=== PATIENT | female | born 1995 | race Caucasian/White ===

== ENCOUNTER 2021-02-28 10:37 | Emergency (ER) | payer OTHER, SELFPAY ==
[2021-02-28 10:54] VITALS: BP 141/89; PULSE 107; RESP 16; TEMP 36.8; O2SAT 99
--- NOTE | 2021-02-28 11:07 | ED.NAVMDI ---
HPI - Nausea/Vomiting/Diarrhea General Chief complaint: Nausea/Vomiting/Diarrhea Stated complaint: Nausea Time Seen by Provider: 02/28/21 10:43 Source: patient Mode of arrival: ambulatory Limitations: no limitations History of Present Illness HPI Narrative: 25 year old female presents to [facility] with complaints of nausea for the past week. Patient reports that she has a long history of anxiety for most of her life and feels that her anxiety has been heightened over the past few weeks. Patient reports that she has intermittent chest tightness with her anxiety which is normal for her. Patient reports that she recently received a new job and is in the process of getting established with a psychiatrist. Patient reports that she has been on and off medications for her anxiety most of her life. Patient reports that she quit taking her anxiety medication approximately 6 months ago as her symptoms were well controlled. Patient denies suicidal or homicidal thoughts. Patient denies concern for . Last menstrual period is February 17, 2021. Patient is homosexual. Patient denies fever, body aches, chills, vomiting, diarrhea, abdominal pain, urinary symptoms. Patient is requesting medication for her nausea until she is able to get established with a local psychiatrist. MD elicited complaint: nausea Onset (ago): week(s) (1) Associated abdominal pain: No Location of pain: none Associated symptoms: other (anxiety) Related Data Allergies Allergy/AdvReac Type Severity Reaction Status Date / Time No Known Allergies Allergy Verified 02/28/21 11:00 Review of Systems Constitutional: Constitutional: Denies chills, Denies fatigue, Denies fever(s) and Denies weakness Cardiovascular: Cardiovascular: Denies rapid heart rate, Denies radiating jaw, neck or arm pain and Denies slow heart rate Respiratory: Respiratory: Denies chest congestion, Denies cough and Denies wheezing Gastrointestinal: Gastrointestinal: Denies abdominal pain, Denies constipation, Denies diarrhea, Reports nausea and Denies vomiting Integumentary/Breasts: Skin/Breast: Denies rash Neurologic: Denies vertigo, Denies dizziness and Denies syncope Psychiatric: Psychiatric: Reports anxiety, Denies depression, Denies homicidal ideation and Denies suicidal ideation [facility] Past Medical History Medical History (Updated 02/28/21 @ 11:15 by Nehal Reynoso APRN) Anxiety Social History Social History (Updated 05/13/21 @ 11:12 by BOSTON Bello Gender identity (if verbalized by the patient): Female Sexual Orientation (if Verbalized by the Patient): Lesbian, Astudillo, or Homosexual Comments At time of signature, I agree with nursing past medical, surgical, social and family history. There is no relevant family history pertinent to the presenting complaint. Exam Const: General: no acute distress and alert Nutritional Appearance: well nourished Orientation/consciousness: patient oriented x3 Resp: Effort & Inspection: normal respiratory effort, not labored and not tachypneic Auscultation: clear to auscultation bilaterally, no rales, no rhonchi and no wheezes Cardio: Rate: regular rate, not bradycardic and not tachycardic Rhythm: regular rhythm Heart sounds: no murmurs GI: Inspection: distended GI Palp: Yes Soft to palpation, No Tenderness to palpation present (GI), No Guarding due to palpation present (GI) and No Rigid due to palpation Auscultation: normal bowel sounds Skin: General skin exam: normal color, no jaundice and no pallor Rashes: no rashes Wounds: no wounds and no wounds noted Neuro: General: patient oriented x3, moves all extremities and no meningeal signs Speech: normal speech Psych: Appearance: grossly normal and well kempt Mental Status: mental status grossly normal Affect: normal affect Attitude: cooperative Thought content: Yes Normal thought content present, No Suicidality present and No Homicidality present Course Vital Signs Vital signs:
== END 2021-02-28 11:20 | disposition home or self-care (01) ==
PROVIDERS: Emergency Provider Nurse Practitioner Family
DX: R11.0 Nausea (principal); F41.9 Anxiety disorder, unspecified
CPT/HCPCS: 99203; G0463

== ENCOUNTER 2021-03-25 00:15 | Emergency (ER) | payer OTHER, SELFPAY ==
[2021-03-25] VITALS (12 sets, daily range): BP systolic 119–154; BP diastolic 70–97; PULSE 90–130; RESP 11–25; TEMP 36.4; O2SAT 97–100
--- NOTE | ~2021-03-25 | XR_ITS ---
EXAMINATION: XR chest 2V EXAM DATE: 03/25/2021 01:32 INDICATION: Dizziness. TECHNIQUE: Frontal and lateral projections of the chest obtained and reviewed. Comparison is made to prior examination from 09/22/2018. FINDINGS: The lungs are clear. There are no pleural effusions. The cardiomediastinal silhouette is within normal limits. There is no pneumothorax suspected. The bones and soft tissues are unremarkab le. IMPRESSION: No acute cardiopulmonary findings. Reviewed, dictated and finalized at location A.
--- NOTE | 2021-03-25 01:11 | ECG_ITS ---
Measurements Intervals [place] Rate: 106 P: 63 NC: 156 QRS: 62 QRSD: 77 T: 45 QT: 335 QTc: 445 Interpretive Statements SINUS TACHYCARDIA POSSIBLE LEFT ATRIAL ENLARGEMENT INCOMPLETE RIGHT BUNDLE BRANCH BLOCK ABNORMAL ECG Electronically Signed On 03-25-2021 7:19:11 CDT by Dat Lundberg D.O.
--- NOTE | 2021-03-25 01:25 | PC.NURSE ---
Pt to XY at this time
--- NOTE | 2021-03-25 01:45 | PC.NURSE ---
Unable to find good IV access site for pt. Contacted ED charge to make attempt. Urine cup at bedside.
[2021-03-25] MEDS: SODIUM CHLORIDE 0.9% IV 1,000 ML 999 ML IV CONT ×2 (02:11→03:18)
[2021-03-25] MEDS: LORazepam INJ (*CRX) 2 MG/ML VIAL 0.5 MG IV PUSH (02:12)
--- NOTE | 2021-03-25 02:15 | ED.DIZZY ---
HPI - Dizziness General Chief Complaint: Dizziness Stated Complaint: dizziness, hi bp Time Seen by Provider: 03/25/21 01:06 Source: RN notes reviewed History of Present Illness HPI Narrative: Patient presents to emergency department from home for palpitations. Patient states approximately 1 PM this evening she was driving when she began to feel like her heart was racing she states that with this it was associated with shortness of breath as well as tingling in her bilateral hands patient states that she has been intermittent feelings of her heart racing over the past week she denies any fevers or chills chest pain shortness of breath abdominal pain nausea vomiting or any other symptoms. Denies any previous work-up for palpitations Related Data Home Medications Medication Instructions Recorded Confirmed No Home Medications 03/25/21 03/25/21 Allergies Allergy/AdvReac Type Severity Reaction Status Date / Time No Known Allergies Allergy Verified 03/25/21 01:01 Review of Systems Review of Systems: Narrative: Gen.: Denies fevers or chills ENT: Denies congestion Respiratory: Denies shortness of breath or cough CV: See HPI GI: Denies abdominal pain nausea, emesis or diarrhea Musculoskeletal: Denies back pain or muscle pain Neuro: Denies numbness, tingling, weakness or focal weakness Skin: Denies rash Except as documented, all other systems reviewed and negative [facility] Past Medical History Medical History (Updated 03/25/21 @ 05:08 by Juventino Sosa DO) Patient denies significant medical history Social History Social History (Updated 03/25/21 @ 02:46 by Juventino Sosa DO) Smoking status: Never smoker Exam Narrative: Exam Narrative: APPEARANCE: No acute distress, nontoxic, resting in bed EYES: EOMI HEENT: Normocephalic, atraumatic, OMM RESPIRATORY: No respiratory distress Clear to auscultation bilaterally with no rhonchi wheezing or rales. CARDIOVASCULAR: Tachycardic and regular without murmurs rubs or gallops. ABDOMINAL: Soft, nontender, nondistended, no rebound or guarding MUSCULOSKELETAl: Moves all extremities. No clubbing, cyanosis or edema. NEURO: Awake and alert. Following commands, speech normal, no focal deficits SKIN:: Warm, dry. No rashes lesions or abrasions PSYCHIATRIC: Normal affect/mood, Course Course Emergency Course: Patient's heart rate improved in ED with Ativan and fluids Discussed with patient results of workup and diagnosis. Discussed need for follow-up with primary care, proper use of medication, and reasons to return to the emergency department. Patient understands and agrees to current treatment plan with patient need for follow-up with cardiology as outpatient Vital Signs Vital signs: Vital Signs Temperature 97.6 F 03/25/21 00:32 Pulse Rate 130 H 03/25/21 00:32 Respiratory Rate 18 03/25/21 00:32 Blood Pressure 154/76 H 03/25/21 00:32 Pulse Oximetry 100 03/25/21 00:32 Temperature 97.6 F 03/25/21 00:32 Pulse Rate 90 03/25/21 04:01 Respiratory Rate 18 03/25/21 04:01 Blood Pressure 119/70 03/25/21 04:01 Pulse Oximetry 99 03/25/21 04:01 MDM - Dizziness Lab Data Result diagrams: 03/25/21 02:19 03/25/21 02:19 Labs: Lab Results 03/25/21 03/25/21 03/25/21 Range/Units 02:19 02:19 02:19 WBC 11.5 H (4.5-10.0) K/mm3 RBC 5.14 (4.2-5.4) M/mm3 Hgb 14.3 (12.0-15.0) g/dL Hct 43.2 (37.0-47.0) % MCV 84.0 (80-100) fl MCH 27.8 (26-34) pg MCHC 33.1 (32-36) g/dl RDW 12.7 (11.5-14.5) % Plt Count 399 H (150-375) k/mm3 MPV 9.6 (7.4-10.4) fl Immature Gran % (Auto) 0.3 (0-0.5) % Neut % (Auto) 57.5 (45.5-73.1) % Lymph % (Auto) 19.7 (18.3-44.2) % Rhea % (Auto) 5.6 (2.6-8.5) % Eos % (Auto) 16.4 H (0-4.4) % Baso % (Auto) 0.5 (0.2-1.2) % Lymph # (Auto) 2.27 (0.9-3.2) K/mm3 Rhea # (Auto) 0.7 H (0.1-0.6) K/mm3 Eos # (Auto) 1.9 H (0-0.
[2021-03-25 02:32] LABS: Basophils Absolute Auto 0.1 K/mm3 (0.0-0.1); Basophils Percent Auto 0.5 % (0.2-1.2); Eosinophils Absolute Auto 1.9 K/mm3 (0-0.3); Eosinophils Percent Auto 16.4 % (0-4.4); Hematocrit 43.2 % (37.0-47.0); Hemoglobin 14.3 g/dL (12.0-15.0); Immature Granulocyte Absolute 0.03 K/mm3 (0.00-0.031); Immature Granulocyte Percent A 0.3 % (0-0.5); Lymphocytes Absolute Auto 2.27 K/mm3 (0.9-3.2); Lymphocytes Percent Auto 19.7 % (18.3-44.2); Mean Corpuscular HGB Conc 33.1 g/dl (32-36); Mean Corpuscular Hemoglobin 27.8 pg (26-34); Mean Platelet Volume 9.6 fl (7.4-10.4); Monocytes Absolute Auto 0.7 K/mm3 (0.1-0.6); Monocytes Percent Auto 5.6 % (2.6-8.5); Neutrophils Absolute Auto 6.6 K/mm3 (1.3-6.7); Neutrophils Percent Auto 57.5 % (45.5-73.1); Platelet Count Result 399 k/mm3 (150-375); Red Blood Count 5.14 M/mm3 (4.2-5.4); Red Cell Distribution Width 12.7 % (11.5-14.5); White Blood Count 11.5 K/mm3 (4.5-10.0)
[2021-03-25 02:35] LABS: Add Urine Microscopic? YES; Appearance Urine Clear (Clear); Bilirubin Urine Negative (Negative); Blood Urine 1+ (Negative); Color Urine Colorless (Yellow); Glucose Urine UA Negative (Negative); Ketones Urine 1+ mg/dL (Negative); Leukocyte Esterase Ur Negative LEU/UL (Negative); Mucus Urine Rare /lpf; Nitrate Urine Negative (Negative); Protein Urine Negative (Negative); RBC Urine 0-2 /hpf (0-2); Squamous Epithelial Cell Urine Rare /hpf (Few); Urobilinogen Urine Negative mg/dL (<2.0); WBC Urine 0-3 /hpf
[2021-03-25 02:40] LABS: Anion Gap 14 mmol/L (8-16); Blood Urea Nitrogen 12 mg/dL (7-17); Calcium 9.3 mg/dL (8.4-10.2); Carbon Dioxide 20 mmol/L (22-30); Chloride 106 mmol/L (98-107); Estimated CRCL calculation 105 ml/min; Estimated Glomerular Filt Rate > 60; Glucose 89 mg/dL (65-105); Potassium 3.5 mmol/L (3.4-5.0); Sodium 140 mmol/L (137-145)
[2021-03-25 02:42] LABS: Specific Grav Ur 1.004 (1.001-1.035)
[2021-03-25 02:53] LABS: Troponin I < 0.012 ng/mL (0.000-0.034)
[2021-03-25 02:56] LABS: Prothrombin Time 13.6 Seconds (11.1-14.7)
[2021-03-25 02:59] LABS: D Dimer 0.27 ug/mL (<0.48)
[2021-03-25 05:06] LABS: Troponin I < 0.012 ng/mL (0.000-0.034)
== END 2021-03-25 05:10 | disposition home or self-care (01) ==
PROVIDERS: Emergency Provider Emergency Medicine
DX: R00.2 Palpitations (principal); R00.0 Tachycardia, unspecified; R94.31 Abnormal electrocardiogram [ECG] [EKG]; I45.10 Unspecified right bundle-branch block
CPT/HCPCS: 36415; 71046; 80048; 81001; 81025; 84443; 84484; 85025; 85380; 85610; 85730; 93005; 96361; 96374; 99284; J2060; J7030

== ENCOUNTER → 2021-07-05 17:20 | Outpatient (CLI) | payer OTHER, SELFPAY ==
--- NOTE | ~2021-07-05 | MM_ITS ---
EXAMINATION: MM screening kody BI w karlene HISTORY: Screening mammogram TECHNIQUE: Craniocaudal and mediolateral oblique 3-D tomosynthesis images were obtained and synthetic 2-D images were generated. CAD analysis was submitted and interpreted. COMPARISON: No prior mammogram is available for comparison at this institution. BREAST PARENCHYMAL COMPOSITION: There are scattered areas of fibroglandular density. FINDINGS: There is no evidence of suspicious mass, calcification, or architectural distortion to sugg est malignancy in either breast. There has been no suspicious interval change. IMPRESSION: 1. No mammographic evidence of malignancy. 2. Recommend routine screening mammography in one year. BI-RADS Category 1: Negative Reviewed, dictated and finalized at location A.
== END ==
PROVIDERS: Visit Provider Nurse Practitioner Obstetrics & Gynecology
DX: Z12.31 Encounter for screening mammogram for malignant neoplasm of breast (principal); Z80.3 Family history of malignant neoplasm of breast
CPT/HCPCS: 77063; 77067

== ENCOUNTER 2021-09-13 10:15 | Outpatient (CLI) | payer OTHER, SELFPAY ==
[2021-09-13 10:43] LABS: Basophils Absolute Auto 0.1 K/mm3 (0.0-0.1); Basophils Percent Auto 0.8 % (0.2-1.2); Eosinophils Percent Auto 0.3 % (0-4.4); Hematocrit 46.3 % (37.0-47.0); Hemoglobin 15.2 g/dL (12.0-15.0); Immature Granulocyte Absolute 0.03 K/mm3 (0.00-0.031); Immature Granulocyte Percent A 0.3 % (0-0.5); Lymphocytes Absolute Auto 2.97 K/mm3 (0.9-3.2); Lymphocytes Percent Auto 25.6 % (18.3-44.2); Mean Corpuscular HGB Conc 32.8 g/dl (32-36); Mean Corpuscular Hemoglobin 29.3 pg (26-34); Mean Corpuscular Volume 89.4 fl (80-100); Mean Platelet Volume 9.5 fl (7.4-10.4); Monocytes Absolute Auto 0.9 K/mm3 (0.1-0.6); Monocytes Percent Auto 7.3 % (2.6-8.5); Neutrophils Absolute Auto 7.6 K/mm3 (1.3-6.7); Neutrophils Percent Auto 65.7 % (45.5-73.1); Platelet Count Result 382 k/mm3 (150-375); Red Blood Count 5.18 M/mm3 (4.2-5.4); Red Cell Distribution Width 13.6 % (11.5-14.5); White Blood Count 11.6 K/mm3 (4.5-10.0)
[2021-09-13 10:53] LABS: Alanine Aminotransferase 22 U/L (4-35); Albumin Level 4.9 g/dL (3.5-5.1); Alkaline Phosphatase 73 U/L (38-126); Anion Gap 7 mmol/L (8-16); Aspartate Amino Transferase 21 U/L (14-36); Bilirubin,Total 0.3 mg/dL (0.2-1.3); Blood Urea Nitrogen 14 mg/dL (7-17); Calcium 9.9 mg/dL (8.4-10.2); Carbon Dioxide 26 mmol/L (22-30); Chloride 104 mmol/L (98-107); Cholesterol 189 mg/dL (0-200); Estimated Glomerular Filt Rate > 60; Glucose 94 mg/dL (65-110); HDL Direct 73 mg/dL; Potassium 4.4 mmol/L (3.4-5.0); Sodium 137 mmol/L (137-145); Triglycerides 70 mg/dL (<150)
[2021-09-13 11:04] LABS: LDL Cholesterol Direct 90 mg/dL
[2021-09-13 11:06] LABS: Hemoglobin A1C 5.1 % (<5.7)
[2021-09-13 11:34] LABS: Vitamin D 25 Hydroxy 36.9 ng/mL
[2021-09-13 11:48] LABS: Thyroid Stimulating Hormone Reflex 0.896 uIU/mL (0.465-4.68)
[2021-09-16 04:18] LABS: Insulin Level Total 11.6 uIU/mL (<=19.6)
== END 2021-09-13 10:16 | disposition home or self-care (01) ==
LOC: ANHLAB 10:18
PROVIDERS: Visit Provider Psychiatry & Neurology Psychiatry
DX: F33.0 Major depressive disorder, recurrent, mild (principal)
CPT/HCPCS: 36415; 80053; 80061; 82306; 82607; 82746; 83036; 83525; 84443; 85025

== ENCOUNTER 2023-07-02 08:19 | Emergency (ER) | payer OTHER, SELFPAY ==
--- NOTE | 2023-07-02 08:29 | ED.URI ---
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 Patient denies any fever, ear pain, sore throat, nausea, vomiting, diarrhea. Has taken Tylenol but nothing else for symptoms. Denies any seasonal allergies. Related Data Allergies Allergy/AdvReac Type Severity Reaction Status Date / Time No Known Allergies Allergy Verified 06/19/21 09:23 Review of Systems Review of Systems: All systems reviewed & are unremarkable except as noted in HPI and below Constitutional: Constitutional: Denies body ache(s), Denies chills, Denies fatigue, Denies fever(s), Denies headache(s), Denies malaise and Denies weakness Eyes: Eyes: Denies blurry vision, Denies itchy eyes and Denies loss of vision ENT: Denies otalgia, Denies headache(s), Reports nasal congestion, Denies sinus pain and Denies sore throat Cardiovascular: Cardiovascular: Denies chest pain, Denies irregular heart rhythm and Denies dyspnea Respiratory: Respiratory: Reports cough and Denies dyspnea Gastrointestinal: Gastrointestinal: Denies abdominal pain, Denies diarrhea, Denies nausea and Denies vomiting Musculoskeletal: Musculoskeletal: Denies back pain, Denies myalgias and Denies arthralgias Integumentary/Breasts: Skin/Breast: Denies pruritus and Denies rash Neurologic: Denies headache(s), Denies loss of vision and Denies weakness Psychiatric: Psychiatric: Reports no additional psychiatric complaints Endocrine: Endocrine: Denies fatigue Allergic/Immunologic: Allergic/Immunologic: Denies itchy eyes PMFSH Past Medical History Medical History Anxiety Patient denies significant medical history Social History Social History Smoking status: Never smoker Gender identity (if verbalized by the patient): Female Sexual Orientation (if Verbalized by the Patient): Lesbian, Astudillo, or Homosexual Comments At time of signature, agree with nursing past medical, surgical, social and family history. There is no relevant family history pertinent to the presenting complaint. Exam Const: General: cooperative, healthy appearing, comfortable, no acute distress and well nourished Nutritional Appearance: well nourished Orientation/consciousness: patient oriented x3 Limitations: no limitations HENMT: Head: normal to inspection, normocephalic and atraumatic Ears: hearing grossly normal bilaterally, external ears normal, TM's normal bilaterally, EAC's normal and no periauricular adenopathy Face/Nose/Sinus: Normal external nose present, Abnormal mucous membranes and turbinates present erythematous bilateral and diffuse, normal facial exam, sinuses nontender and face symmetric Face and sinus: normal facial exam, sinuses nontender and face symmetric Mouth: Yes Normal oral and palatal mucosa present, Yes lip normal, Yes tongue normal, Yes Normal salivary glands and ducts present, Yes oropharynx normal and Yes moist mucous membranes Teeth and gingiva: dentition normal Throat: tonsils normal, uvula midline, posterior oropharynx abnormal erythema and postnasal drainage Eyes: General: appearance normal, both eyes and all related structures Alignment and Position: alignment normal and position normal Periorbital: periorbital findings normal Eyelids: eyelids normal Pupils: Equal, round and reactive pupils present Neck: Neck: normal visual inspection, full ROM, no lymphadenopathy and supple Chest: Chest palpation & inspection: normal inspection of the chest and normal palpation of entire chest wall R
[2023-07-02 08:30] VITALS: BP 134/99; PULSE 114; RESP 16; TEMP 37; O2SAT 99
== END 2023-07-02 09:02 | disposition home or self-care (01) ==
PROVIDERS: Emergency Provider Nurse Practitioner Family
DX: J06.9 Acute upper respiratory infection, unspecified (principal); Z20.822 Contact with and (suspected) exposure to COVID-19
CPT/HCPCS: 87426; 99213; C9803; G0463

== ENCOUNTER 2023-08-08 23:10 | Emergency (ER) | payer OTHER, SELFPAY ==
--- NOTE | ~2023-08-08 | CT_ITS ---
EXAMINATION: CTA chest PE protocol DATE: 08/09/2023 06:07 CDT INDICATION: Chest palpitations. Elevated d-dimer. TECHNIQUE: Computed tomographic angiography (CTA) of the chest was performed with 100 mL Omnipaque-35 0 intravenous contrast. The dose-length product was 402.53 mGy-cm. Maximum intensity projection 3D-re constructions of the aorta and other arteries were constructed by the technologist on a separate work station. Automated exposure control and iterative reconstruction technique were employed. COMPARISON: None. FINDINGS: Study limited by contrast bolus timing. No large central pulmonary embolism. Right hilar ly mphadenopathy, likely reactive. Heart size normal. No significant pleural or pericardial effusion. No evidence for aortic aneurysm or dissection. Upper abdomen is unremarkable. No focal airspace disease . No pneumothorax. No endobronchial lesions. No suspicious pulmonary nodules or masses. No acute osse ous abnormality. IMPRESSION: 1. No acute cardiopulmonary disease. No large central pulmonary embolism. Evaluation of peripheral pu lmonary arteries limited by motion and contrast bolus timing. Reviewed, dictated and finalized at location A. IMPRESSION: 1. No acute cardiopulmonary disease. No large central pulmonary embolism. Evalu ation of peripheral pulmonary arteries limited by motion and contrast bolus melba ing.
--- NOTE | ~2023-08-08 | XR_ITS ---
EXAMINATION: XR chest 1V portable 08/08/2023 23:41 INDICATION: Shortness of breath with chest palpitations PROCEDURE: AP portable chest COMPARISON: 03/25/2021 FINDINGS: The lungs are clear. The cardiomediastinal silhouette is within normal limits. There are no pleural effusions. There is no pneumothorax suspected. IMPRESSION: 1: NO ACUTE CARDIOPULMONARY DISEASE. Reviewed, dictated and finalized at location A.
--- NOTE | 2023-08-08 23:11 | ECG_ITS ---
Measurements Intervals [place] Rate: 154 P: 56 CO: 132 QRS: 55 QRSD: 82 T: 22 QT: 294 QTc: 471 Interpretive Statements SINUS TACHYCARDIA, POSSIBLE RIGHT VENTRICULAR CONDUCTION DELAY [RSR (QR) IN V1/V2] ABNORMAL RHYTHM ECG COMPARED TO ECG 03/25/2021 02:07:50 PATIENT IS MUCH MORE TACHYCARDIC Electronically Signed On 08-09-2023 8:26:53 CDT by Brandon Terry M.D.
[2023-08-08 23:15] VITALS: BP 147/92; PULSE 154; RESP 22; TEMP 36.5; O2SAT 100
[2023-08-09] VITALS (32 sets, daily range): BP systolic 111–162; BP diastolic 62–95; PULSE 103–141; RESP 14–26; O2SAT 98–100
[2023-08-09] MEDS: SODIUM CHLORIDE 0.9% IV 1,000 ML 999 ML IV CONT ×2 (00:03→01:47)
[2023-08-09] MEDS: ASPIRIN 81 MG CHEWABLE TABLET 324 MG PO (00:03)
[2023-08-09 00:39] LABS: Magnesium 1.9 mg/dL (1.6-2.3)
[2023-08-09 00:59] LABS: Alanine Aminotransferase 23 U/L (6-35); Albumin Level 4.8 g/dL (3.5-5.1); Alkaline Phosphatase 104 U/L (38-126); Anion Gap 11 mmol/L (8-16); Aspartate Amino Transferase 27 U/L (14-36); Bilirubin,Total 0.4 mg/dL (0.2-1.3); Blood Urea Nitrogen 13 mg/dL (7-17); Calcium 9.2 mg/dL (8.4-10.2); Carbon Dioxide 20 mmol/L (22-30); Chloride 103 mmol/L (98-107); Estimated CRCL calculation 102 ml/min; Estimated Glomerular Filt Rate > 60; Glucose 209 mg/dL (65-110); Lipase 67 U/L (23-300); Potassium 3.1 mmol/L (3.4-5.0); Sodium 134 mmol/L (137-145); Troponin I < 0.012 ng/mL (0.000-0.034)
[2023-08-09] MEDS: LORazepam INJ (*CRX) 2 MG/ML VIAL 1 MG IV PUSH (01:03)
[2023-08-09 01:21] LABS: Basophils Absolute Auto 0.1 K/mm3 (0.0-0.1); Basophils Percent Auto 0.5 % (0.2-1.2); Eosinophils Absolute Auto 0.1 K/mm3 (0-0.3); Eosinophils Percent Auto 0.6 % (0-4.4); Hematocrit 45.8 % (37.0-47.0); Hemoglobin 14.9 g/dL (12.0-15.0); Immature Granulocyte Absolute 0.07 K/mm3 (0.00-0.031); Immature Granulocyte Percent A 0.4 % (0-0.5); Lymphocytes Absolute Auto 4.46 K/mm3 (0.9-3.2); Lymphocytes Percent Auto 24.5 % (18.3-44.2); Mean Corpuscular HGB Conc 32.5 g/dl (32-36); Mean Corpuscular Hemoglobin 28.4 pg (26-34); Mean Corpuscular Volume 87.2 fl (80-100); Mean Platelet Volume 9.9 fl (7.4-10.4); Monocytes Absolute Auto 0.9 K/mm3 (0.1-0.6); Monocytes Percent Auto 4.9 % (2.6-8.5); Neutrophils Absolute Auto 12.6 K/mm3 (1.3-6.7); Neutrophils Percent Auto 69.1 % (45.5-73.1); Platelet Count Result 406 k/mm3 (150-375); Red Blood Count 5.25 M/mm3 (4.2-5.4); Red Cell Distribution Width 13.6 % (11.5-14.5); White Blood Count 18.2 K/mm3 (4.5-10.0)
[2023-08-09 01:23] LABS: INR 0.9; Prothrombin Time 12.8 Seconds (11.1-14.7)
[2023-08-09 01:24] LABS: Partial Thromboplastin Time 27.5 SECONDS (22.3-36.8)
[2023-08-09 01:36] LABS: D Dimer 0.51 ug/mL (<0.48)
[2023-08-09] MEDS: diazePAM INJ (*CRX) 10 MG/2 ML SYRINGE 5 MG IV PUSH (01:59)
[2023-08-09] MEDS: MAGNESIUM SULF 1 GM/D5W 100 ML 1 GM/100 ML BAG IVPB (02:00)
[2023-08-09 02:12] LABS: Appearance Urine Cloudy (Clear); Bacteria Urine None Seen /hpf; Bilirubin Urine Negative (Negative); Blood Urine Negative (Negative); Color Urine Yellow (Yellow); Glucose Urine UA 1+ mg/dL (Negative); Ketones Urine Negative (Negative); Leukocyte Esterase Ur Negative LEU/UL (Negative); Nitrate Urine Negative (Negative); Non Pathogenic Casts 0-2; Protein Urine Negative (Negative); RBC Urine 0-2 /hpf (0-2); Specific Grav Ur 1.005 (1.001-1.035); Squamous Epithelial Cell Urine None seen /hpf (Few); Urobilinogen Urine 0.2 mg/dL (<2.0); WBC Urine 0-5 /hpf
--- NOTE | 2023-08-09 02:31 | ED.GENADULT ---
HPI - General Adult General Chief complaint: Chest Pain Stated complaint: palpitations, sob, cp Time Seen by Provider: 08/08/23 23:25 History of Present Illness HPI narrative: Patient 28-year-old female presents the emergency department with chief complaint palpitations. Patient reports that she was at work and started having palpitations and felt some tightness in her chest. 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 Patient denies recent travel denies history of cardiac disease denies history of dysrhythmia. Related Data Allergies Allergy/AdvReac Type Severity Reaction Status Date / Time No Known Allergies Allergy Verified 06/19/21 09:23 Review of Systems Review of Systems: A 10 system review of systems was completed on the patient and is negative except for what is stated in the HPI. Nursing and ancillary documentation was reviewed. [facility] Past Medical History Medical History Anxiety Patient denies significant medical history Social History Social History Smoking status: Never smoker Gender identity (if verbalized by the patient): Female Sexual Orientation (if Verbalized by the Patient): Lesbian, Astudillo, or Homosexual Exam Narrative: GENERAL: Well-appearing, well-nourished, and in no acute distress. HEAD: Normocephalic, atraumatic. EYES: PERRLA and EOMI. ENT: Nares clear, no rhinorrhea or epistaxis. Mucous membranes moist. NECK: Supple. CHEST: Clear to auscultation. No respiratory distress. HEART: Tachycardic rate and rhythm. No murmur heard. Normal peripheral pulses. ABDOMEN: Soft, nontender, nondistended, normal active bowel sounds. EXTREMITIES: Normal range of motion. No edema. SKIN: Warm, dry, no rash. NEURO: No focal deficits. Alert and oriented x3. PSYCH: Normal mood and affect. Course Vital Signs Vital signs: Vital Signs Temperature 36.5 C 08/08/23 23:15 Pulse Rate 154 H 08/08/23 23:15 Respiratory Rate 22 H 08/08/23 23:15 Blood Pressure 147/92 H 08/08/23 23:15 Pulse Oximetry 100 08/08/23 23:15 Oxygen Delivery Room Air 08/08/23 23:15 Temperature 36.5 C 08/08/23 23:15 Pulse Rate 108 H 08/09/23 06:31 Respiratory Rate 18 08/09/23 06:31 Blood Pressure 124/71 08/09/23 06:31 Pulse Oximetry 98 08/09/23 06:01 Oxygen Delivery Room Air 08/08/23 23:57 Medical Decision Making [facility] Narrative Medical decision making narrative: Differential diagnosis includes SVT, sinus tachycardia, electrolyte abnormality medication side effect Laboratory studies were obtained that showed a white count of 18.2 D-dimer was slightly elevated at 0.51 electrolytes showed a potassium of 3.1 the patient was given 20 mill equivalents of IV potassium in the ER urinalysis showed no evidence of UTI troponin was negative CTA chest showed no acute abnormality Initial EKG showed a narrow complex tachycardia with a rate of 154 After Valsalva maneuver the patient's heart rate came down in the 130s and after hydration and observation and potassium and magnesium correction the patient's heart rate has come down to 105 Vital Signs Vital Signs: Vital Signs Temperature 36.5 C 08/08/23 23:15 Pulse Rate 154 H 08/08/23 23:15 Respiratory Rate 22 H 08/08/23 23:15 Blood Pressure 147/92 H 08/08/23 23:15 Pulse Oximetry 100 08/08/23 23:15 Oxygen Delivery Room Air 08/08/23 23:15 Temperature 36.5 C 08/08/23 23:15 Pulse Rate 108 H 08/09/23 06:31 Respiratory Rate 18 08/09/23 06:31 Blood Pressure 124/71 08/09/23 06:31 Pulse Oximetry 98 08/09/23 06:01 Oxygen Delivery Room Air 08/08/23 23:57 Lab Data 08/08/23 23:53 08/08/23 23:53 Labs: Lab Results 08/08/23 08/09/23 08/09/23 Range/Units 23:53 01:59 04
[2023-08-09 02:45] LABS: Add Urine Microscopic? YES
[2023-08-09] MEDS: KCL 20 MEQ/SW 100 ML 100 ML 50 MEQ IVPB (03:09)
[2023-08-09] MEDS: SODIUM CHLORIDE 0.9% IV 1,000 ML 999 ML (04:15)
[2023-08-09 04:54] LABS: Troponin I < 0.012 ng/mL (0.000-0.034)
== END 2023-08-09 06:42 | disposition home or self-care (01) ==
PROVIDERS: Emergency Provider Emergency Medicine
DX: I47.10 Supraventricular tachycardia, unspecified (principal); E87.6 Hypokalemia; F41.9 Anxiety disorder, unspecified; R94.31 Abnormal electrocardiogram [ECG] [EKG]
CPT/HCPCS: 36415; 71045; 71275; 80053; 81001; 81025; 83690; 83735; 84443; 84484; 85025; 85380; 85610; 85730; 93005; 96361; 96365; 96366; 96367; 96375; 99284; A9270; J2060; J3360; J3475; J3480; J7030; Q9967

== ENCOUNTER 2023-09-03 18:56 | Emergency (ER) | payer OTHER, SELFPAY ==
[2023-09-03] VITALS (20 sets, daily range): BP systolic 118–141; BP diastolic 73–96; PULSE 95–137; RESP 15–30; TEMP 36.8–36.9; O2SAT 100
--- NOTE | ~2023-09-03 | XR_ITS ---
EXAMINATION: XR chest 2V DATE: 09/03/2023 19:31 INDICATION: Tachycardia TECHNIQUE: frontal and lateral views of the chest were obtained. COMPARISON: Chest CT dated 08/09/2023 FINDINGS: The lungs remain clear with no focal airspace opacities, pulmonary edema, pleural effusion or pneumot horax. The cardiomediastinal silhouette is normal. Visualized bones and soft tissues are unremarkable . IMPRESSION: 1. No acute cardiopulmonary disease. Reviewed, dictated and finalized at location [facility]. [facility]
--- NOTE | 2023-09-03 18:55 | ECG_ITS ---
Measurements Intervals [place] Rate: 157 P: 57 FL: 113 QRS: 76 QRSD: 76 T: 54 QT: 278 QTc: 450 Interpretive Statements SINUS TACHYCARDIA WITH SHORT FL INTERVAL NONSPECIFIC ST & T-WAVE ABNORMALITY- ANTEROLAT/INF LEADS BASELINE ARTIFACT- I, II, III, AVR, AVL, AVF ABNORMAL ECG COMPARED TO ECG 08/08/2023 23:11:16 ST-T WAVE ABNORMALITY NOW PRESENT Electronically Signed On 09-04-2023 14:52:40 [employer]LY[employer] by Dat Lundberg D.O.
[2023-09-03 19:35] LABS: Basophils Absolute Auto 0.1 K/mm3 (0.0-0.1); Basophils Percent Auto 0.5 % (0.2-1.2); Eosinophils Absolute Auto 0.1 K/mm3 (0-0.3); Eosinophils Percent Auto 0.5 % (0-4.4); Hematocrit 44.5 % (37.0-47.0); Hemoglobin 14.5 g/dL (12.0-15.0); Immature Granulocyte Absolute 0.06 K/mm3 (0.00-0.031); Immature Granulocyte Percent A 0.4 % (0-0.5); Lymphocytes Absolute Auto 3.83 K/mm3 (0.9-3.2); Lymphocytes Percent Auto 28.6 % (18.3-44.2); Mean Corpuscular HGB Conc 32.6 g/dl (32-36); Mean Corpuscular Hemoglobin 28.3 pg (26-34); Mean Corpuscular Volume 86.7 fl (80-100); Mean Platelet Volume 9.5 fl (7.4-10.4); Monocytes Absolute Auto 0.7 K/mm3 (0.1-0.6); Monocytes Percent Auto 5.3 % (2.6-8.5); Neutrophils Absolute Auto 8.7 K/mm3 (1.3-6.7); Neutrophils Percent Auto 64.7 % (45.5-73.1); Platelet Count Result 406 k/mm3 (150-375); Red Blood Count 5.13 M/mm3 (4.2-5.4); Red Cell Distribution Width 13.3 % (11.5-14.5); White Blood Count 13.4 K/mm3 (4.5-10.0)
[2023-09-03] MEDS: SODIUM CHLORIDE 0.9% IV 2,000 ML 999 ML IV CONT (19:40)
[2023-09-03] MEDS: MAGNESIUM SULF 2 GM/WATER 50ML 2 GM/50 ML BAG IVPB (19:40)
[2023-09-03 19:45] LABS: Alanine Aminotransferase 25 U/L (6-35); Albumin Level 4.5 g/dL (3.5-5.1); Alkaline Phosphatase 74 U/L (38-126); Anion Gap 11 mmol/L (8-16); Aspartate Amino Transferase 22 U/L (14-36); Bilirubin,Total 0.3 mg/dL (0.2-1.3); Blood Urea Nitrogen 16 mg/dL (7-17); Calcium 9.2 mg/dL (8.4-10.2); Carbon Dioxide 23 mmol/L (22-30); Chloride 104 mmol/L (98-107); Estimated Glomerular Filt Rate > 60; Glucose 153 mg/dL (65-110); Magnesium 1.8 mg/dL (1.6-2.3); Potassium 3.5 mmol/L (3.4-5.0); Sodium 138 mmol/L (137-145)
--- NOTE | 2023-09-03 19:47 | ED.ARRPALP ---
HPI - Arrhythmia/Palpitations General Chief Complaint: Arrhythmia/Palpitations Stated Complaint: SVT Time Seen by Provider: 09/03/23 19:11 History of Present Illness HPI narrative: This is a 28-year-old female, previously seen in this emergency room for tachycardia, repeat turns the emergency department with similar symptoms. The patient states she woke up overnight shift approximately hour and half prior to arrival and noticed fast heart rate. This improved with Valsalva maneuver but persisted. She complains of some chest tightness but denies pain, lightheadedness or loss of consciousness. She states she stopped armodafinil 2 weeks ago but has no other change in medications. Related Data Allergies Allergy/AdvReac Type Severity Reaction Status Date / Time No Known Allergies Allergy Verified 06/19/21 09:23 Review of Systems Review of Systems: CONSTITUTIONAL: Denies fever, chills, or sweats. CARDIOVASCULAR: Palpitations, chest tightness denies chest pain, or edema. RESPIRATORY: Denies cough or dyspnea. GASTROINTESTINAL: Denies abdominal pain, nausea, vomiting, or diarrhea. GENITOURINARY: Denies dysuria or hematuria. SKIN: Denies rash or itching. MUSCULOSKELETAL: Denies back pain, joint pain, or myalgia. NEUROLOGIC: Denies headache, numbness, dizziness, or weakness. PSYCHIATRIC: Denies anxiety or depression. PMFSH Past Medical History Medical History Anxiety Patient denies significant medical history Social History Social History Smoking status: Never smoker Gender identity (if verbalized by the patient): Female Sexual Orientation (if Verbalized by the Patient): Lesbian, Astudillo, or Homosexual Exam Narrative: GENERAL: Well-appearing, well-nourished, and in no acute distress. HEAD: Normocephalic, atraumatic. EYES: PERRLA and EOMI. ENT: Nares clear, no rhinorrhea or epistaxis. Mucous membranes moist. Oropharynx without tonsillar hypertrophy exudate or other lesions. CHEST: Clear to auscultation. No respiratory distress. No wheezes rales or rhonchi HEART: Tachycardic with regular rhythm. No murmur heard. Normal peripheral pulses. ABDOMEN: Soft, nontender, nondistended, normal active bowel sounds. EXTREMITIES: Normal range of motion. No edema. SKIN: Warm, dry, no rash. NEURO: No focal deficits. Alert and oriented x3. PSYCH: Normal mood and affect. Course Course Emergency Course: 19:00 - Chart review shows the patient had a CTA of the chest approximately 3 weeks ago that was negative for PE. My suspicion for seems low at this time. 21:40 - Chest x-ray unremarkable. CBC demonstrates elevated white blood cell count 13.4 and platelet count of 4 6, but is otherwise unremarkable. Chemistries demonstrate an elevated blood glucose of 153 but is otherwise unremarkable. TSH within normal limits. Chest x-ray not concerning for acute cardiopulmonary process. The patient's heart rate improved to the 90s after 2 L of fluid and magnesium. She has a follow-up appointment with primary care doctor tomorrow. Will discharge. Discussed return and emergency precautions including signs/symptoms of ACS and repeat her distress. The patient voiced understanding and is comfortable with the plan. All questions answered to her satisfaction. Vital Signs Vital signs: Vital Signs Pulse Rate 137 H 09/03/23 19:10 Respiratory Rate 22 H 09/03/23 19:10 Temperature 98.5 F 09/03/23 21:55 Pulse Rate 99 09/03/23 21:55 Respiratory Rate 15 09/03/23 21:55 Blood Pressure 124/73 09/03/23 21:55 Pulse Oximetry 100 09/03/23 21:55 Oxygen Delivery Room Air 09/03/23 19:14 MDM - Arrhythmia/Palpitations MDM Narrative Medical decision making narrative: Plan: Labs, imaging, IV fluids test, Differential Diagnosis Differential diagnosis: Likely sinus tachycardia, supraventricular tachycardia
== END 2023-09-03 21:56 | disposition home or self-care (01) ==
PROVIDERS: Emergency Provider Preventive Medicine Aerospace Medicine; PCP Family Medicine
DX: R00.0 Tachycardia, unspecified (principal); R94.31 Abnormal electrocardiogram [ECG] [EKG]
CPT/HCPCS: 36415; 71046; 80053; 81025; 83735; 84443; 85025; 93005; 96361; 96365; 99284; J3475; J7030

== ENCOUNTER 2023-12-23 07:40 | Emergency (ER) | payer OTHER, SELFPAY ==
[2023-12-23] VITALS (18 sets, daily range): BP systolic 121–143; BP diastolic 70–96; PULSE 88–141; RESP 12–23; TEMP 36.6–37.1; O2SAT 96–100
--- NOTE | ~2023-12-23 | XR_ITS ---
Clinical Indication: Palpitations PA and lateral views of the chest: Comparison: 09/03/2023 Findings: The lungs are clear, without evidence of focal consolidation or pleural effusion. Cardiome diastinal silhouette is within normal limits. Bones and soft tissues are unremarkable. Impression: Normal chest. Reviewed, dictated and finalized at [facility]. 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
--- NOTE | ~2023-12-23 | CT_ITS ---
EXAMINATION: CT abdomen pelvis w con INDICATION: Abdominal pain TECHNIQUE: Computed tomographic images of the abdomen and pelvis were obtained after the administrati on of 100 cc of Omnipaque 350 intravenous contrast. The dose-length product (DLP) was 803.57 mGy-cm. Automated exposure control and iterative reconstruction technique were employed. COMPARISON: None available FINDINGS: The lung bases are clear. The heart size is normal. The liver, spleen, pancreas, gallbladde r, and adrenal glands are normal. The kidneys are unremarkable. No pathologically enlarged abdominal or pelvic lymph nodes are identified. No free intraperitoneal gas or evidence of bowel obstruction. T he appendix is normal. IMPRESSION: 1. No CT correlate for the patient's symptoms. Reviewed, dictated and finalized at location [facility]
--- NOTE | 2023-12-23 07:41 | ECG_ITS ---
Measurements Intervals [place] Rate: 137 P: 55 OK: 139 QRS: 69 QRSD: 78 T: 27 QT: 283 QTc: 428 Interpretive Statements SINUS TACHYCARDIA INCOMPLETE RIGHT BUNDLE BRANCH BLOCK BORDERLINE ST-T WAVE ABNORMALITY- ANTEROLAT/INF LEADS BASELINE ARTIFACT- I, II, III, AVR, V1, V6 ABNORMAL ECG COMPARED TO ECG 09/03/2023 18:55:00 NO SIGNIFICANT CHANGES Electronically Signed On 12-23-2023 8:39:32 CLINICAL INSTRUCTOR by Dat Lundberg D.O.
--- NOTE | 2023-12-23 07:50 | ED.ARRPALP ---
HPI - Arrhythmia/Palpitations General Chief Complaint: Arrhythmia/Palpitations Stated Complaint: arrythmia Time Seen by Provider: 12/23/23 07:43 History of Present Illness HPI narrative: Patient is a 28-year-old female with history of SVT, on metoprolol 25 mg daily here with palpitations. She states that she typically works overnight, takes the metoprolol when she wakes up prior to starting her shift typically. Last night she forgot to take her metoprolol. She also notes she drank an energy drink overnight while she was at her shift here in the emergency department. Approximately 30 minutes prior to her shift ending at 7:00 a.m. in the morning she began feeling palpitations, dizziness, lightheadedness, nausea. She notes that she could tell that she was having increased heart rates and attempted to walk to her car and drive home to take her metoprolol however her symptoms worsened and she presented back to the emergency department to be evaluated. She notes that she continues to have dizziness, palpitations, lightheadedness, nausea. She denies any active chest pain. She denies any cough, congestion, fever, chills. She states she was otherwise feeling well when she woke up for her evening shift and throughout the majority of her shift last night. No prior history of PE or DVT. She follows with Dr. Lundberg from Cardiology. Related Data Home Medications Medication Instructions Recorded Confirmed aripiprazole 5 mg tablet (Abilify) 5 mg PO DAILY 09/04/23 10/07/23 ondansetron HCl 4 mg tablet 4 mg PO Q8H PRN 09/04/23 10/07/23 sertraline 100 mg tablet (Zoloft) 50 mg PO DAILY 10/07/23 10/07/23 Allergies Allergy/AdvReac Type Severity Reaction Status Date / Time haloperidol [From Haldol] Allergy Intermediate GPS Verified 10/07/23 13:17 Review of Systems Review of Systems: All systems reviewed & are unremarkable except as noted in HPI and below PMFSH Past Medical History Medical History Anxiety GERD (gastroesophageal reflux disease) Patient denies significant medical history Family History Family History Other Anxiety Cancer Depression Heart disease Hypertension Social History Social History (Updated 10/07/23 @ 13:18 by Juanita Renee [facility]) Smoking packs per day: 1 Smoking cigarettes per day: 20.0 Years smoked: 4 Smoking pack-years: 4.00 Smoking status: Former smoker Tobacco type: e-cigarettes/vaping Alcohol intake: current Drinks per week: 1 Alcohol use details: 1 beer monthly Substance use: current Substance use type: marijuana Lack of Transportation: No Lack of Food: Never True Current Housing: I Have Housing Concerned About Future Housing: No Difficulty Paying Gas/Electric Bills: No Difficulty Paying for Meds: YES Currently Unemployed: No Education: Bachelor's Degree Difficulty w/ Childcare or Family Care: No Living arrangements: with family Occupation/Education: occupation Gender identity (if verbalized by the patient): Female Sexual Orientation (if Verbalized by the Patient): Lesbian, [place], or Homosexual Exam Narrative: GENERAL: Well-appearing, well-nourished, and in no acute distress. HEAD: Normocephalic, atraumatic. EYES: PERRLA and EOMI. ENT: Nares clear. Mucous membranes moist. NECK: Supple. CHEST: Clear to auscultation. No respiratory distress. HEART: Tachycardia. Normal peripheral pulses. ABDOMEN: Soft, nontender, nondistended. EXTREMITIES: Normal range of motion. No edema. SKIN: Warm, dry, no rash. NEURO: No focal deficits. Alert and oriented x3. PSYCH: Normal mood and affect. Course Course Emergency Course: Chart review performed. Patient here with arrhythmia, history of SVT, takes metoprolol 25 mg daily, missed dose last night. Endorses dizziness and light headedness. Patient seen evaluated, nontoxic appearing. Her
[2023-12-23] MEDS: METOPROLOL SUCCINATE EXT REL 25 MG TABCR PO (09:00)
[2023-12-23 09:09] LABS: Basophils Absolute Auto 0.1 K/mm3 (0.0-0.1); Basophils Percent Auto 0.6 % (0.2-1.2); Eosinophils Percent Auto 0.1 % (0-4.4); Hematocrit 46.7 % (37.0-47.0); Hemoglobin 14.9 g/dL (12.0-15.0); Immature Granulocyte Absolute 0.12 K/mm3 (0.00-0.031); Immature Granulocyte Percent A 0.6 % (0-0.5); Lymphocytes Absolute Auto 3.51 K/mm3 (0.9-3.2); Lymphocytes Percent Auto 17.4 % (18.3-44.2); Mean Corpuscular HGB Conc 31.9 g/dl (32-36); Mean Corpuscular Volume 87.8 fl (80-100); Mean Platelet Volume 9.6 fl (7.4-10.4); Monocytes Absolute Auto 1.4 K/mm3 (0.1-0.6); Monocytes Percent Auto 6.9 % (2.6-8.5); Neutrophils Percent Auto 74.4 % (45.5-73.1); Platelet Count Result 428 k/mm3 (150-375); Red Blood Count 5.32 M/mm3 (4.2-5.4); Red Cell Distribution Width 13.6 % (11.5-14.5); White Blood Count 20.1 K/mm3 (4.5-10.0)
[2023-12-23] MEDS: ONDANSETRON HCL ODT 4 MG TABLET PO (09:22)
[2023-12-23 09:24] LABS: Alanine Aminotransferase 34 U/L (6-35); Albumin Level 4.9 g/dL (3.5-5.1); Alkaline Phosphatase 109 U/L (38-126); Anion Gap 12 mmol/L (8-16); Aspartate Amino Transferase 31 U/L (14-36); Bilirubin,Total 0.5 mg/dL (0.2-1.3); Blood Urea Nitrogen 17 mg/dL (7-17); Calcium 10.1 mg/dL (8.4-10.2); Carbon Dioxide 23 mmol/L (22-30); Chloride 101 mmol/L (98-107); Estimated CRCL calculation 108 ml/min; Estimated Glomerular Filt Rate > 60; Glucose 104 mg/dL (65-110); Potassium 3.5 mmol/L (3.4-5.0); Sodium 136 mmol/L (137-145)
[2023-12-23 09:31] LABS: D Dimer < 0.27 ug/mL (<0.48)
[2023-12-23 09:35] LABS: Troponin I < 0.012 ng/mL (0.000-0.034)
[2023-12-23] MEDS: LACTATED RINGERS 1,000 ML 999 ML IV CONT (10:00)
[2023-12-23] MEDS: METOPROLOL TARTRATE INJ 5 MG/5 ML VIAL IV PUSH ×2 (10:01→11:55)
[2023-12-23] MEDS: ONDANSETRON INJ 4 MG/2 ML VIAL IV PUSH ×2 (10:01→12:08)
[2023-12-23 10:43] LABS: Appearance Urine Clear (Clear); Bilirubin Urine Negative (Negative); Blood Urine Negative (Negative); Color Urine Yellow (Yellow); Glucose Urine UA Negative (Negative); Ketones Urine Negative (Negative); Leukocyte Esterase Ur Negative LEU/UL (Negative); Nitrate Urine Negative (Negative); Protein Urine Negative (Negative); Specific Grav Ur 1.011 (1.001-1.035); Urobilinogen Urine 0.2 mg/dL (<2.0); pH Urine 8.5 (5.0-9.0)
[2023-12-23 10:44] LABS: Add Urine Microscopic? NO
[2023-12-23 10:53] LABS: Influenza A QL RT-PCR Negative (Negative); Influenza B QL RT-PCR Negative (Negative); RSV RNA, RT-PCR Negative (Negative); SARS-CoV-2 RNA PCR Negative (Negative)
[2023-12-23 11:26] LABS: Lactic Acid Reflex 1.4 mmol/L (0.7-2.0)
[2023-12-23 12:28] LABS: Urine Pregnancy Test Negative
[2023-12-23 12:29] LABS: Pregnancy On Board Control Positive
== END 2023-12-23 14:12 | disposition home or self-care (01) ==
PROVIDERS: Emergency Provider Student in an Organized Health Care Education/Training Program; PCP Emergency Medicine
DX: D72.829 Elevated white blood cell count, unspecified (principal); R00.0 Tachycardia, unspecified; R42 Dizziness and giddiness; Z20.822 Contact with and (suspected) exposure to COVID-19; F41.9 Anxiety disorder, unspecified; K21.9 Gastro-esophageal reflux disease without esophagitis
CPT/HCPCS: 36415; 71046; 74177; 80053; 81003; 81025; 83605; 83735; 84443; 84484; 85025; 85380; 87637; 93005; 96361; 96374; 96375; 96376; 99284; A9270; J2405; J7120; Q9967

== ENCOUNTER 2024-04-20 23:36 | Emergency (ER) | payer OTHER, SELFPAY ==
[2024-04-21 00:20] VITALS: BP 127/85; PULSE 115; RESP 16; TEMP 37.2; O2SAT 100
[2024-04-21 00:23] LABS: Hematocrit 45.4 % (37.0-47.0); Hemoglobin 15.1 g/dL (12.0-15.0); Mean Corpuscular HGB Conc 33.3 g/dl (32-36); Mean Corpuscular Hemoglobin 28.3 pg (26-34); Mean Corpuscular Volume 85.2 fl (80-100); Mean Platelet Volume 9.6 fl (7.4-10.4); Platelet Count Result 383 k/mm3 (150-375); Red Blood Count 5.33 M/mm3 (4.2-5.4); Red Cell Distribution Width 13.1 % (11.5-14.5); White Blood Count 20.5 K/mm3 (4.5-10.0)
[2024-04-21 00:24] VITALS: BP 114/71; PULSE 116; RESP 15; O2SAT 99
[2024-04-21] MEDS: SODIUM CHLORIDE 0.9% IV 1,000 ML 999 ML IV CONT ×2 (00:27)
[2024-04-21] MEDS: ONDANSETRON INJ 4 MG/2 ML VIAL IV PUSH (00:27)
[2024-04-21 00:33] LABS: Alanine Aminotransferase 32 U/L (6-35); Albumin Level 4.9 g/dL (3.5-5.1); Alkaline Phosphatase 103 U/L (38-126); Anion Gap 11 mmol/L (4-12); Aspartate Amino Transferase 24 U/L (14-36); Bilirubin,Total 0.6 mg/dL (0.2-1.3); Blood Urea Nitrogen 17 mg/dL (7-17); Calcium 9.5 mg/dL (8.4-10.2); Carbon Dioxide 24 mmol/L (22-30); Chloride 106 mmol/L (98-107); Estimated Glomerular Filt Rate > 60; Glucose 132 mg/dL (65-110); Lipase 32 U/L (23-300); Magnesium 1.8 mg/dL (1.6-2.3); Potassium 3.7 mmol/L (3.4-5.0); Sodium 141 mmol/L (137-145)
--- NOTE | 2024-04-21 00:33 | ED.NAVMDI ---
HPI - Nausea/Vomiting/Diarrhea General Chief complaint: Nausea/Vomiting/Diarrhea Stated complaint: N/V/D Time Seen by Provider: 04/20/24 23:53 Source: patient Mode of arrival: ambulatory Limitations: no limitations History of Present Illness HPI Narrative: Patient is a 28-year-old female who presents the ED with report of nausea, vomiting, diarrhea. Patient reports symptoms began 2 days ago. She had to leave work early 2 days ago due to sx's. She reports symptoms became worse tonight to the point she has been vomiting every 20 minutes. States she is unable to keep down any food or drink. Reports chills, denies known fever. Reports intermittent lower back an diffuse abdominal cramping, denies focal abdominal pain. Denies rectal bleeding or melena. Denies known sick contacts, but states coworkers have had similar symptoms. 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 Related Data Home Medications Medication Instructions Recorded Confirmed aripiprazole 5 mg tablet (Abilify) 5 mg PO DAILY 09/04/23 10/07/23 ondansetron HCl 4 mg tablet 4 mg PO Q8H PRN 09/04/23 10/07/23 sertraline 100 mg tablet (Zoloft) 50 mg PO DAILY 10/07/23 10/07/23 Allergies Allergy/AdvReac Type Severity Reaction Status Date / Time haloperidol [From Haldol] Allergy Intermediate GPS Verified 04/21/24 00:51 Review of Systems Review of Systems: CONSTITUTIONAL: Denies fever, chills, or sweats. GASTROINTESTINAL: See HPI. GENITOURINARY: Denies dysuria or hematuria. MUSCULOSKELETAL: See HPI. All systems reviewed & are unremarkable except as noted in HPI and below PMFSH Past Medical History Medical History Anxiety GERD (gastroesophageal reflux disease) Patient denies significant medical history Family History Family History Other Anxiety Cancer Depression Heart disease Hypertension Social History Social History Smoking packs per day: 1 Smoking cigarettes per day: 20.0 Years smoked: 4 Smoking pack-years: 4.00 Smoking status: Current every day smoker Tobacco type: e-cigarettes/vaping Alcohol intake: current Drinks per week: 1 Alcohol use details: 1 beer monthly Substance use: current Substance use type: marijuana Lack of Transportation: No Lack of Food: Never True Current Housing: I Have Housing Concerned About Future Housing: No Difficulty Paying Gas/Electric Bills: No Difficulty Paying for Meds: YES Currently Unemployed: No Education: Bachelor's Degree Difficulty w/ Childcare or Family Care: No Living arrangements: with family Occupation/Education: occupation Gender identity (if verbalized by the patient): Female Sexual Orientation (if Verbalized by the Patient): Lesbian, [place], or Homosexual Exam Narrative: GENERAL: Well appearing, well-nourished, non-toxic, in no acute distress. HEAD: Normocephalic, atraumatic. ENT: MMs dry. RESPIRATORY: Airway patent, respirations nonlabored. Clear to auscultation bilaterally, no rales, rhonchi, wheezing. CARDIOVASCULAR: Tachycardic with regular rhythm without murmurs, rubs, or gallops. ABDOMINAL: Soft, No significant tenderness throughout abdomen, nondistended. Normoactive BS. MUSCULOSKELETAL: Moves all extremities. No gross deformities. SKIN: Warm, dry, normal color. NEURO: A&O X3. Speech clear. Cranial nerves II-XII grossly intact. Steady gait. No ataxic movements. PSYCHIATRIC: Appropriate mood and affect. Normal interaction. Course Vital Signs Vital signs: Vital Signs Temperature 98.9 F 04/21/24 00:20 Pulse Rate 115 H 04/21/24 00:20 Respiratory Rate 16 04/21/24 00:20 Blood Pressure 127/85 04/21/24 00:20 Pulse Oximetry 100 04/21/24 00:20 Oxygen Delivery Room Air 04/21/24 00:20 Temperature 98.9 F 04/21/24 00:20 Pulse Rat
[2024-04-21 00:43] LABS: Appearance Urine Turbid (Clear); Bacteria Urine 4+ /hpf; Bilirubin Urine 2+ (Negative); Blood Urine Negative (Negative); Color Urine Dark Yellow (Yellow); Glucose Urine UA Negative (Negative); Ketones Urine 1+ mg/dL (Negative); Leukocyte Esterase Ur Trace LEU/UL (Negative); Need Manual Microscopic Reviewed; Nitrate Urine Negative (Negative); Protein Urine 1+ mg/dL (Negative); Specific Grav Ur 1.038 (1.001-1.035); Squamous Epithelial Cell Urine Many /hpf (Few); pH Urine 5.5 (5.0-9.0)
[2024-04-21 00:48] LABS: Band Neutrophils Percent 2 % (0-6); Eosinophils Absolute Manual 2.05 K/mm3 (0.02-0.50); Eosinophils Percent Manual 10 % (0-4); Lymphocytes Absolute Manual 1.64 K/mm3 (1.1-4.5); Monocytes Absolute Manual 0.61 K/mm3 (0.1-0.90); Monocytes Percent Manual 3 % (3-9); Neutrophils Absolute Manual 16.19 K/mm3 (1.7-7.2); Neutrophils Percent Manual 77 % (46-73); Total Cells Counted 100
[2024-04-21 00:49] LABS: Ovalocytes 1+; Platelet Estimate Adequate (Adequate)
[2024-04-21 00:50] LABS: Anisocytosis 1+; Poikilocytosis 1+; Schistocytes None Seen
[2024-04-21 00:59] LABS: Add Urine Microscopic? YES
[2024-04-21 02:09] VITALS: BP 124/98; PULSE 114; RESP 15; O2SAT 100
== END 2024-04-21 02:12 | disposition home or self-care (01) ==
PROVIDERS: Student in an Organized Health Care Education/Training Program; Emergency Provider Physician Assistant; PCP Emergency Medicine
DX: K52.9 Noninfective gastroenteritis and colitis, unspecified (principal); F41.9 Anxiety disorder, unspecified; K21.9 Gastro-esophageal reflux disease without esophagitis; F17.290 Nicotine dependence, other tobacco product, uncomplicated
CPT/HCPCS: 36415; 80053; 81001; 83690; 83735; 85025; 87086; 87088; 96361; 96374; 99284; J2405; J7030